=== PATIENT | male | born 1990 | race Caucasian/White ===

== ENCOUNTER 2019-09-11 20:53 | Emergency (ER) | payer OTHER ==
[~2019-09-11] VITALS: Ht 180.3 cm; Wt 83.9 kg
[2019-09-11] MEDS ORDERED: ZITHROMAX500 MG PO (23:24)
== END 2019-09-12 00:04 | disposition home or self-care (01) ==
LOC: ER 20:53
DX: J11.1 Influenza due to unidentified influenza virus with other respiratory manifestations (principal); B96.0 Mycoplasma pneumoniae [M. pneumoniae] as the cause of diseases classified elsewhere

== ENCOUNTER 2020-09-05 10:17 | Emergency (ER) | payer OTHER ==
[~2020-09-05] VITALS: Ht 180.3 cm; Wt 83.9 kg
[~2020-09-05 10:17] MED LIST: ZITHROMAX500 MG PO
== END 2020-09-05 15:14 | disposition home or self-care (01) ==
LOC: ER 10:17
DX: B34.9 Viral infection, unspecified (principal); Z03.818 Encounter for observation for suspected exposure to other biological agents ruled out

== ENCOUNTER 2020-10-09 21:38 | Emergency (ER) | payer OTHER ==
[~2020-10-09] VITALS: Ht 175.3 cm; Wt 79.4 kg
[2020-10-10] MEDS ORDERED: ALBUTEROL2.5 MG/3 M IH (03:00)
[2020-10-10] MEDS ORDERED: ZYRTEC10 M2 PO ×2 (03:00→03:01)
[2020-10-10] MEDS ORDERED: NASAL MIST126 ML NASAL (03:00)
[2020-10-10] MEDS ORDERED: DECADRON6 MG PO (03:00)
[2020-10-10] MEDS ORDERED: TUSSIN DM CLEA118 M1 PO (03:00)
[2020-10-10] MEDS ORDERED: ZITHROMAX500 MG PO (03:00)
== END 2020-10-10 03:11 ==
LOC: ER 21:38
DX: B34.9 Viral infection, unspecified (principal); Z20.822 Contact with and (suspected) exposure to COVID-19

== ENCOUNTER 2022-05-31 06:29 | Emergency (ER) | payer OTHER ==
[~2022-05-31] VITALS: Ht 180.3 cm; Wt 72.6 kg
[~2022-05-31 06:29] MED LIST changes: +ALBUTEROL2.5 MG/3 M IH; +DECADRON6 MG PO; +NASAL MIST126 ML NASAL; +TUSSIN DM CLEA118 M1 PO; +ZYRTEC10 M2 PO
== END 2022-05-31 07:13 | disposition home or self-care (01) ==
LOC: ER 06:29
DX: R42 Dizziness and giddiness (principal); F12.929 Cannabis use, unspecified with intoxication, unspecified

== ENCOUNTER 2023-11-03 04:59 | Inpatient (IN) | payer OTHER ==
[~2023-11-03] VITALS: Ht 172.7 cm; Wt 86.2 kg
--- NOTE | 2023-11-03 05:13 | NUR ---
SE RECIBE PTE ALERTA Y ORIENTADO X3 EL MISMO REFIERE PRESENTAR DOLOR ABDOMINAL EN LA MADRUGADA D EHOY Y VOMITOS X4.
[2023-11-03] MEDS ORDERED: RINGERS SOLUTION,LACTATED 1,000 ML IV STA (05:55)
[2023-11-03] MEDS ORDERED: KETOROLAC TROMETHAMINE 30 MG VIAL IV STA (05:56)
[2023-11-03] MEDS ORDERED: HYOSCYAMINE SULFATE 0.125 MG TAB.SUBL SL STA (05:56)
[2023-11-03] MEDS ORDERED: MEPERIDINE HCL/PF 50 MG/ML VIAL IM STA (05:56)
[2023-11-03] MEDS ORDERED: PROMETHAZINE HCL 50 MG/ML AMPUL IM STA (05:57)
--- NOTE | 2023-11-03 06:05 | NUR ---
RN HOWARD EDUCA A PTE SOBRE TX A RECIBIR EN EL AREA, RN CONNOR CANALIZA A PTE Y REALIZA MUESTRAS DE LAB BAJO MEDIDAS ASEPTICAS, LAS ENVIA DE FORMA INMEDIATA. SE ADMINISTRA MEDICACION JYOTHI ORDEN MEDICA Y SE LEXIE PTE EN AREA EDUCADO SOBRE CONTRASTE PO.
[2023-11-03 06:54] LABS: HEMOGLOBIN 14.8 g/dL (13-16.00); MEAN CELL VOLUME 79.9 fL (80.0-100.00); MEAN CORPUSCULAR HEMOGLOBIN 26.3 pg (27.00-32.0); MEAN CORPUSCULAR HGB CONC 32.9 g/dl (32.0-36.0); PLATELET COUNT 249 K/uL (150-450); RED BLOOD COUNT 5.63 M/uL (4.00-6.00); RED CELL DISTRIBUTION WIDTH 14.3 % (11.5-14.5)
[2023-11-03 07:06] LABS: CALCIUM 9.6 mg/dL (8.5-10.1); CREATININE SERUM 0.99 mg/dL (0.70-1.30); GFR 88.17; POTASSIUM 3.51 mEq/L (3.5-5.1)
[2023-11-03] MEDS ORDERED: GENTAMICIN SULFATE 40 MG/ML VIAL IV STA (07:25)
[2023-11-03] MEDS ORDERED: CLINDAMYCIN PHOSPHATE 150 MG/ML (600mg) IV STA (07:26)
[2023-11-03 07:33] LABS: INR 0.98; PARTIAL THROMBOPLASTIN TIME 32.5 SECONDS (22.0-34.0); PROTHROMBIN TIME 10.3 SECONDS (9.0-11.5)
--- NOTE | 2023-11-03 07:35 | NUR ---
SE RECIBE PTE ALERTA ORIENTADO X3 EN RACHEL CON BARANDAS ELEVADAS POR FRAGOSO SEGURIDAD.VENOPUNCION PATENTE AVERY DE EDEMA Y ERITEMA RECIBIENDO R/L BAJANDO 120 ML/HR.PENDIENTE RESULTADOS DE LABORATORIO Y CT PO.SE ORIENTA PTE SOBRE EL MISMO JUNG CON CONTRASTE.
[2023-11-03 13:00] LABS: PH,URINE 7.5 (5.0-8.0); URINE APPEARANCE Clear; URINE BILIRRUBIN Negative (NEGATIVE); URINE BLOOD Negative; URINE COLOR Yellow; URINE GLUCOSE Negative (NEGATIVE); URINE LEUKOCYTE Small; URINE NITRATE Negative; URINE PROTEIN Negative (NEGATIVE); URINE UROBILINOGEN 0.2 E.U./dl
[2023-11-03 13:02] LABS: URINE BACTERIA 13.8 uL (0.0-1933)
[2023-11-03] MEDS ORDERED: 0.9 % SODIUM CHLORIDE 1,000 ML IV SCH ×2 (16:30→21:00)
[2023-11-03] MEDS ORDERED: ACETAMINOPHEN 500 MG GEL..CAP PO PRN (16:30)
[2023-11-03] MEDS ORDERED: ONDANSETRON HCL 4 MG in 0.9 % SODIUM CHLORIDE 50 ML IV PRN (16:30)
[2023-11-03] MEDS ORDERED: MEPERIDINE HCL/PF 25 MG/ML VIAL IM PRN (16:30)
[2023-11-03] MEDS ORDERED: PIPERACILLIN/TAZOBACTAM SODIUM 3.375 GM in 0.9 % SODIUM CHLORIDE 100 ML IV SCH (18:00)
[2023-11-03] MEDS ORDERED: ONDANSETRON HCL 2 MG/ML VIAL IV ONE (19:45)
[2023-11-03] MEDS ORDERED: MEPERIDINE HCL/PF 25 MG/ML VIAL IV PRN (19:45)
[2023-11-03] MEDS ORDERED: MORPHINE SULFATE 4 MG in 0.9 % SODIUM CHLORIDE 9 ML IV PRN (19:45)
[2023-11-03] MEDS ORDERED: KETOROLAC TROMETHAMINE 30 MG VIAL IV PRN (21:00)
[2023-11-03] MEDS ORDERED: ONDANSETRON HCL 2 MG/ML VIAL IV PRN (21:00)
[2023-11-04] MEDS ORDERED: PIPERACILLIN/TAZOBACTAM SODIUM 3.375 GM VIAL IV ONE (00:03)
[2023-11-04] MEDS ORDERED: FAMOTIDINE/PF 20 MG/2 ML VIAL ONE (07:33)
[2023-11-04] MEDS ORDERED: SIMETHICONE 125 MG CAPSULE PO SCH (09:00)
[2023-11-04] MEDS ORDERED: SUCRALFATE 1 G TABLET PO SCH (09:00)
[2023-11-04] MEDS ORDERED: FAMOTIDINE/PF 20 MG in 0.9 % SODIUM CHLORIDE 8 ML IV PUSH SCH (09:00)
== END 2023-11-05 14:33 | disposition home or self-care (01) | DRG 399 ==
LOC: ER 04:59 → SEC-K 17:09 → SURG 17:09 → O/R 20:02 → SURG 21:14
PROVIDERS: Surgery; ADMIT Internal Medicine; ATTEND Internal Medicine
PROC: BW21YZZ Computerized Tomography (CT Scan) of Abdomen and Pelvis using Other Contrast (ICD-10-PCS; 2023-11-03)
PROC: 0DTJ4ZZ Resection of Appendix, Percutaneous Endoscopic Approach (ICD-10-PCS; principal; 2023-11-03 17:30)
DX: K35.890 Other acute appendicitis without perforation or gangrene (principal)